=== PATIENT | male | born 1995 | race African-American/Black ===

== ENCOUNTER 2018-10-21 15:54 | Emergency (ER) | payer BC ==
[2018-10-21] MEDS ORDERED: predniSONE 20 MG TAB ONE (16:38)
[2018-10-21] MEDS ORDERED: Azithromycin 250 MG TAB ONE (16:38)
== END 2018-10-21 16:50 | disposition home or self-care (01) ==
LOC: MADERS 15:54
DX: J32.0 Chronic maxillary sinusitis (principal); F17.210 Nicotine dependence, cigarettes, uncomplicated
CPT/HCPCS: 99283; J7512

== ENCOUNTER 2018-11-05 10:02 | Emergency (ER) | payer BC ==
[2018-11-05] MEDS ORDERED: predniSONE 20 MG TAB ONE (10:34)
== END 2018-11-05 10:39 | disposition home or self-care (01) ==
LOC: MADERS 10:02
DX: T63.461A Toxic effect of venom of wasps, accidental (unintentional), initial encounter (principal); F17.210 Nicotine dependence, cigarettes, uncomplicated
CPT/HCPCS: 99282; J7512